=== PATIENT | female | born 1945 | race African-American/Black ===

== ENCOUNTER 2019-05-04 15:03 | Emergency (ER) | payer MEDICARE, MEDICAID ==
[~2019-05-04] VITALS: Ht 162.6 cm; Wt 59.0 kg
--- NOTE | 2019-05-04 15:04 | NUR ---
ED Nurse Note: Patient biba from home c/o right hand weakness. patient states that she first noticed it on saturday. at time of arrival patient is hypertensive at 189/81. denies any pain or headache, just states that she has sudden episodes of weakness with unsteady gait. patient does not present with slurred speech, no forearm drift noted, able to smile equally bilaterally
[2019-05-04 15:10] VITALS: BP 189/87
--- NOTE | 2019-05-04 15:29 | Emergency Room Report ---
History of Present Illness General Chief Complaint: Generalized Weakness Source: Patient Present Illness HPI Patient presents with right hand weakness and discoordination. This began yesterday in the afternoon. She had a slight headache last night but this is resolved and she thinks it was related to a pillow. History of hypertension but is not taking medication at this time. She denies diabetes. He does smoke cigarettes. Paramedics were summoned and she had a negative [facility]APPS exam. Patient denies chest pain, palpitations, nausea, vomiting. She does have loose stools and also has difficulty controlling her bladder. She denies any dysuria but has urgency. 2007 the patient had left leg weakness and was told that she had heat stroke at that time. The weakness resolved completely. Etoh use. Was drinking before being picked up by EMS. No fevers, chills, chest pain, palpitations, nausea, vomiting, diarrhea, dysuria , abdominal pain, shortness of breath, depression, visual changes, headache. Allergies: Coded Allergies: No Known Allergies (Unverified , 05/04/19) Patient History Past Medical History: see triage record Social History: Reports: smoking, alcohol use Social History Narrative Lives by herself Now: No Reviewed Nursing Documentation: PMH: Agreed; PSxH: Agreed Nursing Documentation-PMH Past Medical History: No Stated History Review of Systems All Other Systems: negative except mentioned in HPI Physical Exam Vital Signs Date Time Temp Pulse Resp B/P (MAP) Pulse Ox O2 Delivery O2 Flow Rate FiO2 05/04/19 15:04 98.2 78 16 181/87 (118) 98 Room Air Sp02 EP Interpretation: reviewed, normal General Appearance: no apparent distress, GCS 15, non-toxic Head: normocephalic, other - Until boxing Eyes: bilateral eye PERRL, bilateral eye EOMI, bilateral eye conjunctivae pale ENT: moist mucus membranes Neck: supple Respiratory: wheezing, expiration - minimal Cardiovascular #1: regular rate, rhythm Cardiovascular #2: 2+ radial (R) Gastrointestinal: normal inspection, normal bowel sounds, non tender, no mass, non-distended Genitourinary: no CVA tenderness Musculoskeletal: other - DJD Neurologic: alert, oriented x3, document controller III-XII nml as tested, DTRs symmetric, sensory intact, cerebellar normal, motor weakness - Drift right hand Psychiatric: mood/affect normal Skin: no rash, pallor - Hyperpigmented macules shoulders with some pallor Medical Decision Making Diagnostic Impression: Primary Impression: Acute stroke Additional Impressions: Hypertension Qualified Codes: I10 - Essential (primary) hypertension Alcohol abuse Alcohol withdrawal Qualified Codes: F10.239 - Alcohol dependence with withdrawal, unspecified ER Course Patient presents with right hand weakness with drift. Differential includes ischemic, embolic stroke. She is outside the window for TPA administration. Also she is outside the window for transfer to stroke center. Evaluation will be with EKG, chest x-ray, CT of the head and labs. Her blood pressure needs to be addressed. EKG without injury. CT with lacunar infarcts. CXR COPD. Labs with normal CBC and CMP. Coags normal. BNP minimally elevated. Aspirin and Plavix ordered. Some anxiety and Ativan ordered BAL added. BP improved after hydralazine. Presented to Dr. Erwin. More agitation. Ativan repeat. Suspect alcohol withdrawal. Discussed with Dr. Lebron (accepting MD). Requested 25 mg librium. Rather than Librium, I believe patient needs Haldol. 2.5 mg given IM. Patient more calm after Haldol. Hydralazine repeated. Patient transferred improved. Laboratory Tests Test 05/04/19 16:00 White Blood Count 6.1 K/UL (4.8-10.8) Red Blood Count 4.25 M/UL (4.20-5.40) Hemoglobin 14.1 G/DL (12.0-16.0) Hematocrit 41.2 % (37.0-47.0) Mean Corpuscular Volume 97 FL (80-99) Mean Corpuscular Hemoglobin 33.1 PG (27.0-31.0) H Mean Corpuscular Hemoglobin Concent 34.1 G/DL (32.0-36.0) Red Cell Distribution Width 12.3 % (11.6-14.8) Platelet Count 191 K/UL (150-450) Mean Platelet Volume 7.4 FL (6.5-10.1) Neutrophils (%) (Auto) 62.0 % (45.0-75.0) Lymphocytes (%) (Auto) 31.0 % (20.0-45.0) Monocytes (%) (Auto) 4.4 % (1.0-10.0) Eosinophils (%) (Auto) 1.3 % (0.0-3.0) Basophils (%) (Auto) 1.2 % (0.0-2.0) Prothrombin Time 9.8 SEC (9.30-11.50) Prothrombin Time INR 0.9 (0.9-1.1) PTT 26 SEC (23-33) Urine Color Pale yellow Urine Appearance Clear Urine pH 8 (4.5-8.0) Urine Specific [place] 1.005 (1.005-1.035) Urine Protein Negative (NEGATIVE) Urine Glucose (UA) Negative (NEGATIVE) Urine Ketones Negative (NEGATIVE) Urine Blood 1+ (NEGATIVE) H Urine Nitrite Negative (NEGATIVE) Urine Bilirubin Negative (NEGATIVE) Urine Urobilinogen Normal MG/DL (0.0-1.0) Urine Leukocyte Esterase 2+ (NEGATIVE) H Urine RBC 0-2 /HPF (0 - 2) Urine WBC 2-4 /HPF (0 - 2) Urine Squamous Epithelial Cells Occasional /LPF Urine Bacteria Moderate /HPF (NONE) H Sodium Level 139 MMOL/L (136-145) Potassium Level 3.8 MMOL/L (3.5-5.1) Chloride Level 107 MMOL/L (98-107) Carbon Dioxide Level 24 MMOL/L (21-32) Anion Gap 8 mmol/L (5-15) Blood Urea Nitrogen 8 mg/dL (7-18) Creatinine 0.6 MG/DL (0.55-1.30) Estimate Glomerular Filtration Rate mL/min (>60) Glucose Level 85 MG/DL (74-106) Calcium Level 8.9 MG/DL (8.5-10.1) Total Bilirubin 0.5 MG/DL (0.2-1.0) Aspartate Amino Transferase (AST) 19 U/L (15-37) Alanine Aminotransferase (ALT) 7 U/L (12-78) L Alkaline Phosphatase 78 U/L (46-116) Total Creatine Kinase 68 U/L (26-308) Creatine Kinase MB 1.0 NG/ML (0.0-3.6) Creatine Kinase MB Relative Index 1.4 Troponin I 0.000 ng/mL (0.000-0.056) Pro-B-Type Natriuretic Peptide 568 pg/mL (0-125) H Total Protein 8.7 G/DL (6.4-8.2) H Albumin 3.5 G/DL (3.4-5.0) Globulin 5.2 g/dL Albumin/Globulin Ratio 0.7 (1.0-2.7) L Urine Opiates Screen Negative (NEGATIVE) Urine Barbiturates Screen Negative (NEGATIVE) Phencyclidine (PCP) Screen Negative (NEGATIVE) Urine Amphetamines Screen Negative (NEGATIVE) Urine Benzodiazepines Screen Negative (NEGATIVE) Urine Cocaine Screen Negative (NEGATIVE) Urine Marijuana (THC) Screen Negative (NEGATIVE) Serum Alcohol 48 mg/dL EKG Diagnostic Results Rate: normal Rhythm: NSR ST Segments: no acute changes - Low voltage Rhythm Strip Diag. 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
--- NOTE | 2019-05-04 16:04 | Diagnostic Imaging Report ---
Indications: Headache, right-sided weakness Technique: Spiral acquisitions obtained through the brain. Angled axial and coronal 5 x 5 mm slices were reconstructed. Total dose length product 1513.01 mGycm. CTDI vol(s) 70.38 mGy. Dose reduction achieved using automated exposure control Comparison: None. Findings: There are old lacunar infarcts in the bilateral thalami. There is age-related enlargement of the ventricles and extra axial CSF spaces. There is periventricular deep white matter low-attenuation, consistent with chronic microvascular ischemic change. Visualized orbits are unremarkable. The included sinuses are clear. There is fairly extensive mastoid opacification and sclerosis, right greater than left. The calvarium is intact. Impression: Old bilateral thalamic lacunar infarcts Other chronic and age-related changes, as described Negative for acute intracranial bleed or mass effect Evidence of mastoiditis, likely mostly chronic, right greater than left The CT scanner at [facility] is accredited by the [employer] and the scans are performed using protocols designed to limit radiation exposure to as low as reasonably achievable to attain images of sufficient resolution adequate for diagnostic evaluation.
[2019-05-04 16:28] LABS: BASOPHILS % (AUTO) 1.2 % (0.0-2.0); EOSINOPHILS % (AUTO) 1.3 % (0.0-3.0); HEMATOCRIT 41.2 % (37.0-47.0); HEMOGLOBIN 14.1 G/DL (12.0-16.0); MEAN CORPUSCULAR VOLUME 97 FL (80-99); MONOCYTES % (AUTO) 4.4 % (1.0-10.0); PLATELET COUNT 191 K/UL (150-450); RED BLOOD COUNT 4.25 M/UL (4.20-5.40); RED CELL DISTRIBUTION WIDTH 12.3 % (11.6-14.8); WHITE BLOOD COUNT 6.1 K/UL (4.8-10.8)
[2019-05-04 16:32] LABS: APPEARANCE,URINE CLEAR; BILIRUBIN, URINE NEGATIVE (NEGATIVE); COLOR,URINE PALE YELLOW; GLUCOSE, URINE (UA) NEGATIVE (NEGATIVE); KETONES,URINE NEGATIVE (NEGATIVE); LEUKOCYTE ESTERASE ,URINE 2+ (NEGATIVE); NITRITE,URINE NEGATIVE (NEGATIVE); PH,URINE 8 (4.5-8.0); PROTEIN,URINE NEGATIVE (NEGATIVE); UROBILINOGEN,URINE NORMAL MG/DL (0.0-1.0)
[2019-05-04 16:44] LABS: ANION GAP 8 mmol/L (5-15); BLOOD UREA NITROGEN 8 mg/dL (7-18); CALCIUM 8.9 MG/DL (8.5-10.1); CARBON DIOXIDE 24 MMOL/L (21-32); CHLORIDE 107 MMOL/L (98-107); CREATININE 0.6 MG/DL (0.55-1.30); POTASSIUM 3.8 MMOL/L (3.5-5.1); SODIUM 139 MMOL/L (136-145)
[2019-05-04 16:46] LABS: INR 0.9 (0.9-1.1)
[2019-05-04 16:59] LABS: ALANINE AMINOTRANSFERASE 7 U/L (12-78); ALBUMIN 3.5 G/DL (3.4-5.0); ALBUMIN/GLOBULIN RATIO 0.7 (1.0-2.7); ALKALINE PHOSPHATASE 78 U/L (46-116); ASPARTATE AMINO TRANSFERASE 19 U/L (15-37); BILIRUBIN,TOTAL 0.5 MG/DL (0.2-1.0); CREATINE KINASE 68 U/L (26-308)
[2019-05-04] MEDS ORDERED: LORazepam Inj 2mg/ml 1ml IV ONE ×2 (17:00→18:15)
--- NOTE | 2019-05-04 17:16 | Diagnostic Imaging Report ---
Indication: Shortness of breath Technique: One view of the chest Comparison: 10/29/2007 Findings: Lungs and pleural spaces are clear. The heart is upper limits normal in size. No significant interim change Impression: No acute process
--- NOTE | 2019-05-04 17:35 | NUR ---
ED Nurse Note: Patient at no distress at this time
[2019-05-04 17:45] VITALS: BP 161/71
[2019-05-04] MEDS ORDERED: chlordiazePOXIDE 25mg Cap ORAL ONE (19:15)
--- NOTE | 2019-05-04 19:15 | NUR ---
ED Nurse Note: patient not calm in bed and constantly rambling words. per Dr. lopez patient will be given haldol
[2019-05-04] MEDS ORDERED: Haloperidol 5mg/ml Inj IM ONE (19:30)
[2019-05-04 20:40] VITALS: BP 173/72
--- NOTE | 2019-05-04 21:04 | NUR ---
ED Nurse Note: Incontinent of urine; cleaned and changed.
--- NOTE | 2019-05-04 21:31 | NUR ---
ED Nurse Note: gave report to LUIS EDUARDO colbert at [facility]
[2019-05-04 21:46] VITALS: BP 133/72
--- NOTE | 2019-05-04 22:06 | NUR ---
ED Nurse Note: Message left with John Hobson ([phone]), who is listed as emergency contact, that the patient is being transferred to [facility]
--- NOTE | 2019-05-04 22:14 | NUR ---
ED Nurse Note: Patient is leaving the ED accompanied by ambulance personnel and en route to [facility]. at this time patient reports of no pain
[2019-05-04 22:15] VITALS: BP 131/52
--- NOTE | 2019-05-05 18:51 | Cardiology Report ---
APPROVED REPORT EKG Measurement Heart [id number] HI 208P [id number] Normal sinus rhythm Low voltage QRS Septal infarct, age undetermined Abnormal ECG
== END 2019-05-04 22:15 | disposition short-term general hospital (02) ==
LOC: EDBD 15:03 → EMR 16:26
DX: I63.9 Cerebral infarction, unspecified (principal); I10 Essential (primary) hypertension; F10.10 Alcohol abuse, uncomplicated; F10.239 Alcohol dependence with withdrawal, unspecified; R51 Headache; F17.200 Nicotine dependence, unspecified, uncomplicated; J44.9 Chronic obstructive pulmonary disease, unspecified
CPT/HCPCS: 36415; 70450; 71045; 80053; 80307; 81003; 82550; 82553; 83880; 84484; 85025; 85610; 85730; 87086; 87181; 93005; 96372; 96374; 96375; 96376; 99285; G0480; J0360; J1630; 80329